=== PATIENT | female | born 1995 | race Caucasian/White ===

== ENCOUNTER 2016-11-18 12:35 | Day surgery (SDC) | payer OTHER ==
[2016-11-18 14:37] VITALS: BP 120/72; PULSE 77; RESP 18; TEMP 98.2; O2SAT 99
[2016-11-18 14:52] VITALS: BP 102/70; PULSE 72; RESP 19; O2SAT 99
[2016-11-18] MEDS ORDERED: SODIUM BICARBONATE 8.4% INJ 50 ML ONE (15:04)
[2016-11-18] MEDS ORDERED: LIDOCAINE HCL 1% 30 ML VIAL ONE (15:04)
--- NOTE | 2016-11-18 15:54 | RADRPT ---
EXAM DATE/TIME: 11/18/2016 13:35 [place] COMPARISON: No previous studies available for comparison. EXTERNAL COMPARISON : [facility], CT SOFT TISSUE NECK,W/ CONTRAST, October 21, 2016 INDICATIONS : Palpable mass left neck. MEDICAL HISTORY : Palpable lump in Left neck. Family history of lymphoma. Sore throat. Chronic sinusitis. Congestion. P ost nasal drip. SURGICAL HISTORY : None. ENCOUNTER: Initial ACUITY: > 1 year PAIN SCORE: 0/10 LOCATION: Left neck ORGAN: Left lymph node SPECIMENS: Six core specimen(s) submitted for pathologic evaluation. DEVICE: 20 gauge [place] needle Post procedure scanning reveals no hematoma or other complication. TECHNIQUE: 1. Ultrasound guidance for needle biopsy. 2. Needle biopsy. The risks, benefits, and alternatives to ultrasound guided needle biopsy were explained to the patien t in detail including the risk of bleeding and infection. Written and verbal informed consent was ob tained. With the patient on the ultrasound table, images were obtained. Overlying skin was prepped and drape d in the usual sterile fashion and Lidocaine was utilized as a local anesthetic. A needle was advanced into the identified target and the number of specimens as above obtained and marie bmitted for pathologic evaluation. The patient tolerated the procedure well and left the ultrasound suite in stable condition. CONCLUSION: Uncomplicated ultrasound guided needle biopsy of an enlarged left level II lymph node. Amarjit Truong MD on November 18, 2016 at 15:52 Board Certified Radiologist. This report was verified electronically.
== END 2016-11-18 14:57 | disposition home or self-care (01) ==
LOC: HRAD 12:35 → HRIP 12:36 → HRAD 14:57
PROVIDERS: ATTEND Otolaryngology Otolaryngology/Facial Plastic Surgery
DX: R22.1 Localized swelling, mass and lump, neck (principal)
CPT/HCPCS: 38505; 76942; 88305